=== PATIENT | male | born 1965 | race Two or more races ===

== ENCOUNTER 2020-08-20 10:50 | Emergency (ER) | payer OTHER ==
[~2020-08-20] VITALS: Ht 180.3 cm; Wt 115.7 kg
--- NOTE | 2020-08-20 10:52 | NUR ---
PT BIB SELF C/O WORSENING SOB, WEAKNESS X 1 WEEK. PT IS AAOX4, NOT IN RESPIRATORY DISTRESS, HOOKED TO HOUSEKEEPER CHILD CARE, KEPT RESTED AND COMFORTABLE. WILL CONTINUE TO MONITOR.
--- NOTE | 2020-08-20 11:11 | NUR ---
SEEN AND EXAMINED BY .
--- NOTE | 2020-08-20 11:27 | NUR ---
PHLEB AT BEDSIDE FOR BLOOD DRAW.
[2020-08-20 11:34] LABS: BASOPHILS # (AUTO) 0.1 /CMM (0.0-0.2); BASOPHILS % (AUTO) 1.5 % (0.0-2.0); EOSINOPHILS % (AUTO) 0.9 % (0.0-6.0); HEMATOCRIT 45 % (39-51); HEMOGLOBIN 14.8 g/dL (13.5-17.5); LYMPHOCYTES # (AUTO) 1.1 /CMM (0.8-4.8); LYMPHOCYTES % (AUTO) 17.3 % (20.0-44.0); MEAN CORPUSCULAR HGB CONC 33 g/dl (31.0-36.0); MEAN CORPUSCULAR VOLUME 100 fL (80-96); MONOCYTES # (AUTO) 0.8 /CMM (0.1-1.30); MONOCYTES % (AUTO) 13.5 % (2.0-12.0); NEUTROPHILS # (AUTO) 4.2 /CMM (1.8-8.9); NEUTROPHILS % (AUTO) 66.8 % (43.0-81.0); PLATELET COUNT (AUTO) 126 /CMM (150-450); RED BLOOD CELL COUNT(AUTO) 4.43 MIL/uL (4.5-6.0); WHITE BLOOD COUNT (AUTO) 6.3 K/uL (4.3-11.0)
[2020-08-20 11:59] LABS: ALBUMIN 2.9 g/dL (3.4-5.0); BILIRUBIN,TOTAL 2.4 mg/dL (0.2-1.0); CREATININE 1.3 mg/dL (0.6-1.3); TOTAL PROTEIN, SERUM 7.3 g/dL (6.4-8.2)
[2020-08-20 12:00] LABS: POTASSIUM 2.7 mmol/L (3.5-5.1)
[2020-08-20] MEDS ORDERED: POTASSIUM CHLORIDE 20 MEQ TAB.PRT.SR PO ONE ×2 (12:24→13:00)
--- NOTE | 2020-08-20 12:28 | NUR ---
Covid Negative per Laboratory
[2020-08-20] MEDS ORDERED: POTASSIUM CL. PREMIX PERIPHER. 50 ML IV SCH (12:30)
--- NOTE | 2020-08-20 12:32 | NUR ---
Patient does not wish to proceed with medical care recommended by Dr. Adame. Patient given information related to possible complications, up to and including , which could occur as a result of leaving the hospital at this time. Patient verbalizes understanding of risks involved due to leaving against medical advice. Patient has signed AMA form.
[2020-08-20 12:33] VITALS: BP 131/84
== END 2020-08-20 12:33 | disposition left against medical advice (07) ==
LOC: ER 10:58
DX: E87.6 Hypokalemia (principal); R53.1 Weakness; R11.0 Nausea; F10.20 Alcohol dependence, uncomplicated; Z20.822 Contact with and (suspected) exposure to COVID-19; R00.0 Tachycardia, unspecified; R94.31 Abnormal electrocardiogram [ECG] [EKG]
CPT/HCPCS: 36415; 71045; 80053; 82550; 82553; 83690; 83880; 84484; 85025; 87426; 93005; 99285; C9803 ×2; U0003

== ENCOUNTER 2020-10-16 22:23 | Emergency (ER) | payer OTHER ==
[~2020-10-16] VITALS: Ht 182.9 cm; Wt 136.5 kg
--- NOTE | 2020-10-16 22:35 | NUR ---
BIBS FOR C/O SOB . DENIED COUGH, CP OR FEVER. PT SATTING 70-80% ON R/A. PT WAS ASSISTED TO THE ER RM BED 6 VIA WC AND PLACED HIM ON A MONITOR, O2 AT 15LPM VIA NON REBREATHER MASK WAS PROVIDED AND MADE AWARE, PT REPORTED BEING HOSPITALIZED RECENTLY FOR "HEART AND LONG PROBLEM" BUT UNKNOWN OF ANY PMH AND DENIED TAKING ANY MEDS AT HOME. PT NOTED W/ SWOLLEN FEET AND ANKLE,
--- NOTE | 2020-10-16 22:45 | NUR ---
RT AT BED SIDE TO PLACE PT ON BIPAP
[2020-10-16 22:47] LABS: BASOPHILS # (AUTO) 0.2 /CMM (0.0-0.2); BASOPHILS % (AUTO) 3.3 % (0.0-2.0); EOSINOPHILS % (AUTO) 1.4 % (0.0-6.0); HEMATOCRIT 45 % (39-51); HEMOGLOBIN 15.1 g/dL (13.5-17.5); LYMPHOCYTES # (AUTO) 1.4 /CMM (0.8-4.8); LYMPHOCYTES % (AUTO) 24.1 % (20.0-44.0); MEAN CORPUSCULAR HGB CONC 34 g/dl (31.0-36.0); MEAN CORPUSCULAR VOLUME 105 fL (80-96); MONOCYTES # (AUTO) 0.7 /CMM (0.1-1.30); MONOCYTES % (AUTO) 12.7 % (2.0-12.0); NEUTROPHILS # (AUTO) 3.4 /CMM (1.8-8.9); NEUTROPHILS % (AUTO) 58.5 % (43.0-81.0); PLATELET COUNT (AUTO) 178 /CMM (150-450); RED BLOOD CELL COUNT(AUTO) 4.27 MIL/uL (4.5-6.0); WHITE BLOOD COUNT (AUTO) 5.8 K/uL (4.3-11.0)
[2020-10-16] MEDS ORDERED: NITROGLYCERIN PACKET 1 GM PACKET ONE (22:48)
[2020-10-16] MEDS ORDERED: FUROSEMIDE 40 MG/4 ML VIAL ONE (22:48)
[2020-10-16 22:55] LABS: CALCIUM, SERUM 7.9 mg/dL (8.5-10.1); CREATININE 0.6 mg/dL (0.6-1.3); POTASSIUM 3.3 mmol/L (3.5-5.1)
--- NOTE | 2020-10-16 22:57 | NUR ---
BIBPAP SETTING: RATE: 12, 15/5, FIO2: 30%
[2020-10-16] MEDS ORDERED: NITROGLYCERIN PACKET 1 GM PACKET TD ONE (23:00)
[2020-10-16] MEDS ORDERED: FUROSEMIDE 40 MG/4 ML VIAL IV ONE (23:00)
[2020-10-16 23:08] LABS: BILIRUBIN,DIRECT 1.4 mg/dL (0.0-0.2); BILIRUBIN,TOTAL 1.6 mg/dL (0.2-1.0); TOTAL PROTEIN, SERUM 7.8 g/dL (6.4-8.2)
--- NOTE | 2020-10-16 23:33 | NUR ---
PT HAD 1000ML OF CLEAR, YELLOW URINE OUT PUT. REMAINED ON BIPAP. WILL CONT TO MONITOR,
--- NOTE | 2020-10-16 23:45 | NUR ---
[facility] paged per Dr Adame.
--- NOTE | 2020-10-16 23:45 | NUR ---
LAB CALLED REGARDING NEGATIVE COVID RESULT.
--- NOTE | 2020-10-16 23:45 | NUR ---
COVID IS NEGATIVE
--- NOTE | 2020-10-17 00:33 | NUR ---
MD/ RT MADE AWARE OF PT'S LOW O2 SAT. FIO2 WAS CHANGED TO 40%. PT CURRENTLY SLEEPING IN BED. RESTING COMFORTABLY WITH NO DISTRESS. NO S/S OF DISCOMFORT. WILL CONT TO MONITOR
--- NOTE | 2020-10-17 02:15 | NUR ---
PER ISAIAH AT [facility], PT WILL BE TRANSPORTED VIA [facility] TO [facility]. ACCEPTING DOCTOR IS Ivonne CRAWLEY. ETA FOR TRANSPORT IS [phone].
--- NOTE | 2020-10-17 02:17 | NUR ---
[place] PHONE NUMBER FOR REPORT IS [phone].
[2020-10-17 02:38] VITALS: BP 148/103
--- NOTE | 2020-10-17 02:38 | NUR ---
REPORT GIVEN TO RUPERTO AT [facility]
--- NOTE | 2020-10-17 03:16 | NUR ---
[facility] AT BED SIDE TO ARTICULATION OFFICER THE PT . REPORT GIVEN
--- NOTE | 2020-10-17 03:22 | NUR ---
PT WAS PICKED UP BY [facility] UNDER [facility]. ALL BELONGINGS WERE PICKED UP,
== END 2020-10-17 03:30 | disposition short-term general hospital (02) ==
LOC: ER 22:24
DX: I50.9 Heart failure, unspecified (principal); R60.0 Localized edema; R06.02 Shortness of breath; R05 Cough; Z20.822 Contact with and (suspected) exposure to COVID-19; R00.0 Tachycardia, unspecified
CPT/HCPCS: 36415; 71045; 80048; 80076; 83880; 84484; 85025; 87426; 93005; 96374; 99291; C9803; J1940; U0003

== ENCOUNTER 2021-08-28 13:15 | Emergency (ER) | payer OTHER ==
[~2021-08-28] VITALS: Ht 180.3 cm; Wt 117.9 kg
--- NOTE | 2021-08-28 13:19 | NUR ---
[id number] HOME C/O MIDSTERNAL CHEST PAIN SINCE 0700. ASPIRIN AND NITROX2 ZOFRAN 4MG IVP GIVEN HORSE WRANGLER. C/O NAUSEA, VOMITING X [address] PRIOR TO CALLING EMS PT STATED PAIN 7/10 AFTER RECIEVING NITRO AND SPIRIN PAIN IS CURRENTLY 2/10. PT ATTCHED TO MONITOR. WARM BLANKET PROVIDED FOR COMFORT. AWAITING MD NARANJO.
[2021-08-28] MEDS ORDERED: NITROGLYCERIN 0.4 MG/TAB BOTTLE SL ONE (14:30)
[2021-08-28] MEDS ORDERED: NITROGLYCERIN 0.4 MG/TAB BOTTLE ONE (14:37)
[2021-08-28] MEDS ORDERED: PANT40TA49 PO (14:39)
[2021-08-28] MEDS ORDERED: METF-440 PO (14:39)
[2021-08-28] MEDS ORDERED: FOLI0.4T6 PO (14:39)
[2021-08-28] MEDS ORDERED: THIA100T70 PO (14:39)
[2021-08-28] MEDS ORDERED: POTA20TA83 PO (14:39)
[2021-08-28] MEDS ORDERED: LEVO25TA9 PO (14:39)
[2021-08-28] MEDS ORDERED: NITR0.4T48 PO (14:39)
[2021-08-28] MEDS ORDERED: FURO40TA5 PO (14:39)
[2021-08-28 14:41] LABS: BASOPHILS # (AUTO) 0.1 K/uL (0.0-0.2); BASOPHILS % (AUTO) 0.9 % (0.0-2.0); EOSINOPHILS % (AUTO) 0.1 % (0.0-6.0); HEMATOCRIT 43 % (39-51); HEMOGLOBIN 14.3 g/dL (13.5-17.5); LYMPHOCYTES # (AUTO) 1.1 K/uL (0.8-4.8); LYMPHOCYTES % (AUTO) 12.7 % (20.0-44.0); MEAN CORPUSCULAR HGB CONC 33 g/dl (31.0-36.0); MEAN CORPUSCULAR VOLUME 103 fL (80-96); MONOCYTES # (AUTO) 0.8 K/uL (0.1-1.30); MONOCYTES % (AUTO) 9.5 % (2.0-12.0); NEUTROPHILS # (AUTO) 6.9 K/uL (1.8-8.9); NEUTROPHILS % (AUTO) 76.8 % (43.0-81.0); PLATELET COUNT (AUTO) 392 K/uL (150-450); RED BLOOD CELL COUNT(AUTO) 4.22 MIL/uL (4.5-6.0); WHITE BLOOD COUNT (AUTO) 8.9 K/uL (4.3-11.0)
[2021-08-28 14:49] LABS: CALCIUM, SERUM 8.8 mg/dL (8.5-10.1); CARBON DIOXIDE 31 mmol/L (21-32); CHLORIDE 99 mmol/L (98-107); CREATININE 1.1 mg/dL (0.6-1.3); GLUCOSE 180 mg/dL (74-106); POTASSIUM 3.9 mmol/L (3.5-5.1); SODIUM SERUM 141 mmol/L (136-145); UREA NITROGEN, BLOOD 5 mg/dL (7-18)
[2021-08-28] MEDS ORDERED: ONDANSETRON HCL/PF - ER 4 MG/2 ML VIAL IV ONE (15:00)
[2021-08-28] MEDS ORDERED: ONDANSETRON HCL/PF 4 MG/2 ML VIAL ONE (15:03)
--- NOTE | 2021-08-28 15:33 | NUR ---
PAGED DR. RAMOS AT [phone] FOR MD TO
--- NOTE | 2021-08-28 15:42 | NUR ---
COVID TEST COLLECTED AND SENT
[2021-08-28] MEDS ORDERED: METOCLOPRAMIDE HCL 10 MG/2 ML VIAL IV ONE (16:00)
--- NOTE | 2021-08-28 16:29 | NUR ---
FAXED COVID RESULT TO [facility]
--- NOTE | 2021-08-28 17:01 | NUR ---
[place] [facility] CALLED AND GACVE INFORMATION ON PT ACCEPTANCE NUMBER FOR REPORT [phone] CHARGE NURSE RHONA BEING TRANSPORTED TO ER HOLDING AREA CALLED [facility] AND SET UP BLS TRANSPORT ETA [phone]
--- NOTE | 2021-08-28 17:02 | NUR ---
NUMBER FOR HARDWARE ENGINEERING MANAGER [phone] EXT. [phone] FR[address] JAVIER
--- NOTE | 2021-08-28 17:18 | NUR ---
ATEMPTED TO [place] TO GIVE REPORT, WAS TOLD TO CALL BACK IN 15 MINUTES
--- NOTE | 2021-08-28 17:40 | NUR ---
REPORT GIVEN TO RHONA FOR [facility]
[2021-08-28 17:42] VITALS: BP 151/91
--- NOTE | 2021-08-28 17:48 | NUR ---
PARAMEDICS ARRIVED, REPORT GIVEN, PT TRANSPORTED TO [facility] IN STABLE CONDITION VIA [facility].
== END 2021-08-28 17:57 | disposition short-term general hospital (02) ==
LOC: ER 13:19
DX: R07.9 Chest pain, unspecified (principal); E11.9 Type 2 diabetes mellitus without complications; Z79.84 Long term (current) use of oral hypoglycemic drugs; I11.0 Hypertensive heart disease with heart failure; I50.9 Heart failure, unspecified; Z79.899 Other long term (current) drug therapy; R00.0 Tachycardia, unspecified; Z20.822 Contact with and (suspected) exposure to COVID-19
CPT/HCPCS: 36415; 71045; 80048; 83880; 84484; 85025; 87426; 93005; 96374; 99291; 99292; C9803; J2405

== ENCOUNTER 2021-10-13 17:12 | Emergency (ER) | payer OTHER ==
[~2021-10-13 17:12] MED LIST: FOLI0.4T6 PO; FURO40TA5 PO; LEVO25TA9 PO; METF-440 PO; NITR0.4T48 PO; PANT40TA49 PO; POTA20TA83 PO; THIA100T70 PO
[2021-10-13 18:17] LABS: BASOPHILS # (AUTO) 0.1 K/uL (0.0-0.2); BASOPHILS % (AUTO) 1.1 % (0.0-2.0); EOSINOPHILS % (AUTO) 0.1 % (0.0-6.0); HEMATOCRIT 45 % (39-51); HEMOGLOBIN 14.8 g/dL (13.5-17.5); LYMPHOCYTES # (AUTO) 0.9 K/uL (0.8-4.8); LYMPHOCYTES % (AUTO) 12.2 % (20.0-44.0); MEAN CORPUSCULAR HGB CONC 33 g/dl (31.0-36.0); MEAN CORPUSCULAR VOLUME 100 fL (80-96); MONOCYTES # (AUTO) 0.7 K/uL (0.1-1.30); MONOCYTES % (AUTO) 10.4 % (2.0-12.0); NEUTROPHILS # (AUTO) 5.4 K/uL (1.8-8.9); NEUTROPHILS % (AUTO) 76.2 % (43.0-81.0); PLATELET COUNT (AUTO) 197 K/uL (150-450); RED BLOOD CELL COUNT(AUTO) 4.47 MIL/uL (4.5-6.0); WHITE BLOOD COUNT (AUTO) 7.1 K/uL (4.3-11.0)
[2021-10-13 18:41] LABS: ALANINE AMINOTRANSFERASE 23 U/L (12-78); ALBUMIN 3.3 g/dL (3.4-5.0); ALKALINE PHOSPHATASE 95 U/L (46-116); ASPARTATE AMINOTRANSFERASE 27 U/L (15-37); BILIRUBIN,DIRECT 0.2 mg/dL (0.0-0.2); BILIRUBIN,TOTAL 0.6 mg/dL (0.2-1.0); CALCIUM, SERUM 8.6 mg/dL (8.5-10.1); CARBON DIOXIDE 32 mmol/L (21-32); CHLORIDE 100 mmol/L (98-107); CREATININE 1.2 mg/dL (0.6-1.3); GLUCOSE 176 mg/dL (74-106); POTASSIUM 4.5 mmol/L (3.5-5.1); SODIUM SERUM 140 mmol/L (136-145); TOTAL PROTEIN, SERUM 8.4 g/dL (6.4-8.2); UREA NITROGEN, BLOOD 6 mg/dL (7-18)
[2021-10-13] MEDS ORDERED: APIX5TAB PO (18:44)
--- NOTE | 2021-10-13 18:59 | NUR ---
BIB SELF FROM HOME, C/O PAIN IN CHEST, FAINT NAUSEA, DIZZY, HAD CHF, WARM TO TOUCH GIVEN COLD WATER TO DRINK , APPEARED TO BE DEHYRATED
[2021-10-13] MEDS ORDERED: ASPIRIN 325 MG TABLET PO ONE (19:30)
[2021-10-13] MEDS ORDERED: NITROGLYCERIN PACKET 1 GM PACKET TD ONE (19:30)
[2021-10-13] MEDS ORDERED: ASPIRIN 325 MG TABLET ONE (20:38)
[2021-10-13] MEDS ORDERED: NITROGLYCERIN PACKET 1 GM PACKET ONE (20:41)
--- NOTE | 2021-10-13 21:04 | NUR ---
DR. WINCHESTER ON THE PHINE WITH DR. JUAN
--- NOTE | 2021-10-13 21:30 | NUR ---
COURT ABSTRACTOR DAVEY
--- NOTE | 2021-10-13 23:40 | NUR ---
Pt requesting to be discharged. MD aware and will speak to pt.
--- NOTE | 2021-10-13 23:57 | NUR ---
Pt aware transfer is being coordinated and will wait for transfer
--- NOTE | 2021-10-14 00:01 | NUR ---
PT IS GOING TO [facility]. [address] ROOM [address] UNDER THE CARE OF DR. WINCHESTER. CALL [phone]
--- NOTE | 2021-10-14 01:07 | NUR ---
ANGELICA AT [facility] FOR TRANSPORT.
[2021-10-14] MEDS ORDERED: ONDANSETRON 4 MG TAB.RAPDIS ONE (01:21)
[2021-10-14] MEDS ORDERED: ACETAMINOPHEN 325 MG TABLET ONE (01:21)
[2021-10-14] MEDS ORDERED: ONDANSETRON 4 MG TAB.RAPDIS SL ONE (01:30)
[2021-10-14] MEDS ORDERED: ACETAMINOPHEN ES 500 MG TABLET PO ONE (01:30)
[2021-10-14] MEDS ORDERED: CARVEDILOL 3.125 MG TABLET ONE (01:49)
[2021-10-14 01:54] VITALS: BP 148/100
--- NOTE | 2021-10-14 01:54 | NUR ---
PATIENT BEING TRANSFERRED VIA AMBULANCE IN STABLE CONDITION BY UN[address]
--- NOTE | 2021-10-14 01:59 | NUR ---
REPORT GIVEN TO WILBUR CARCAMO AT [facility] FOR [facility]
[2021-10-14] MEDS ORDERED: CARVEDILOL 3.125 MG TABLET PO ONE (02:00)
== END 2021-10-14 01:55 | disposition short-term general hospital (02) ==
LOC: ER 17:22
DX: R07.2 Precordial pain (principal); R00.0 Tachycardia, unspecified; J84.9 Interstitial pulmonary disease, unspecified; E11.9 Type 2 diabetes mellitus without complications; Z79.84 Long term (current) use of oral hypoglycemic drugs; Z20.822 Contact with and (suspected) exposure to COVID-19; I10 Essential (primary) hypertension; Z86.69 Personal history of other diseases of the nervous system and sense organs; Z79.01 Long term (current) use of anticoagulants
CPT/HCPCS: 36415 ×2; 71045; 80048; 80076; 83880; 84484 ×2; 85025; 87426; 93005; 99285; C9803; Q0162